=== PATIENT | male | born 1955 | race Hispanic/Latino ===

== ENCOUNTER 2018-08-04 14:30 | Observation (INO) | payer SELFPAY ==
[~2018-08-04] VITALS: Ht 182.9 cm; Wt 77.9 kg
[2018-08-04] MEDS ORDERED: KETOROLAC TROMETHAMINE 15MG/ML ONE (15:31)
[2018-08-04 15:40] LABS: APPEARANCE,URINE Clear (CLEAR); BILIRUBIN,URINE Negative (NEGATIVE); COLOR,URINE Yellow (YELLOW); GLUCOSE, URINE (UA) >=1000 mg/dL (NEGATIVE); KETONES,URINE Negative (NEGATIVE); LEUKOCYTE ESTERASE ,URINE Negative (NEGATIVE); NITRATE,URINE Negative (NEGATIVE); OCCULT BLOOD,URINE Negative (NEGATIVE); PROTEIN,URINE Negative (NEGATIVE); UROBILINOGEN,URINE 0.2 mg/dL (0.2-1.0)
[2018-08-04 15:50] LABS: ALBUMIN 3.6 g/dL (3.5-5.0); BILIRUBIN,TOTAL 0.7 mg/dL (0.2-1.0); CREATININE 0.8 mg/dL (0.5-1.5); POTASSIUM 4.2 mmol/L (3.5-5.1); TOTAL PROTEIN, SERUM 7.7 g/dL (6.0-8.3)
[2018-08-04 16:09] LABS: BASOPHILS % (AUTO) 1.3 % (0.0-5.0); EOSINOPHILS % (AUTO) 2.3 % (0.0-8.0); HEMATOCRIT 37.4 % (42-54); LYMPHOCYTES % (AUTO) 26.2 % (21.0-51.0); MEAN CORPUSCULAR HEMOGLOBIN 32.8 pg (27.0-33.0); MEAN CORPUSCULAR HGB CONC 35.4 g/dL (32.0-36.0); MEAN CORPUSCULAR VOLUME 92.4 fL (79-99); NEUTROPHILS % (AUTO) 60.2 % (40.0-77.0); NUCLEATED RED BLOOD CELLS 0.1 % (0.0-0.19); PLATELET COUNT (AUTO) 67 K/uL (130-400); RED BLOOD CELL COUNT(AUTO) 4.04 MIL/uL (4.50-6.20); RED CELL DISTRIBUTION WIDTH 12.9 % (11.0-15.5); WHITE BLOOD COUNT (AUTO) 4.1 K/uL (4.8-10.8)
[2018-08-04] MEDS ORDERED: IOHEXOL-350 75 ML VIAL IV ONE (16:28)
[2018-08-04] MEDS ORDERED: INSULIN HUMULIN R 100 UNIT/ML 3ML ONE (16:29)
[2018-08-04] MEDS ORDERED: SODIUM CHLORIDE 0.9% 1000ML 1,000 ML IV ONE ×2 (16:30→19:45)
[2018-08-04] MEDS ORDERED: GLUCAGON 1MG KIT 1 MG ML IM PRN (19:00)
[2018-08-04] MEDS ORDERED: DEXTROSE 50%-WATER 50 ML DISP.SYRIN IV PRN (19:00)
[2018-08-04] MEDS: SODIUM CHLORIDE 0.9% 1000ML 1,000 ML IV SCH (19:36)
[2018-08-04] MEDS ORDERED: ACETAMINOPHEN 325 MG TAB PO PRN ×2 (19:45)
[2018-08-04] MEDS ORDERED: ONDANSETRON HCL 4 MG/2 ML VIAL IV PRN (19:45)
[2018-08-04] MEDS ORDERED: NITROGLYCERIN 0.4 MG SL TAB SL PRN (19:45)
[2018-08-04] MEDS ORDERED: SODIUM CHLORIDE 0.9% 1000ML 2,000 ML IV ONE (20:16)
[2018-08-04] MEDS: FAMOTIDINE 20MG TAB 20 MG TAB PO SCH (21:00)
[2018-08-04] MEDS: INSULIN HUMULIN R 100 UNIT/ML 3ML SQ SCH (21:00)
[2018-08-04] MEDS ORDERED: LACTULOSE 20 GM/30 ML UDCUP PO PRN (21:15)
[2018-08-04] MEDS ORDERED: KETOROLAC TROMETHAMINE 15MG/ML IV PRN (21:15)
[2018-08-04] MEDS ORDERED: FAMOTIDINE 20MG TAB 20 MG TAB ONE (23:48)
[2018-08-05] MEDS ORDERED: LACTULOSE 20 GM/30 ML UDCUP ONE (00:08)
[2018-08-05] MEDS ORDERED: INSULIN HUMULIN R 100 UNIT/ML 3ML ONE (00:18)
[2018-08-05 04:00] VITALS: BP 145/80
[2018-08-05] MEDS: SODIUM CHLORIDE 0.9% 1000ML 1,000 ML IV SCH (04:13)
[2018-08-05 05:43] LABS: HEMATOCRIT 33.9 % (42-54); MEAN CORPUSCULAR HEMOGLOBIN 32.4 pg (27.0-33.0); MEAN CORPUSCULAR HGB CONC 35.4 g/dL (32.0-36.0); MEAN CORPUSCULAR VOLUME 91.6 fL (79-99); NUCLEATED RED BLOOD CELLS 0.1 % (0.0-0.19); PLATELET COUNT (AUTO) 62 K/uL (130-400); RED CELL DISTRIBUTION WIDTH 13.1 % (11.0-15.5); WHITE BLOOD COUNT (AUTO) 3.6 K/uL (4.8-10.8)
[2018-08-05 05:56] LABS: ALBUMIN 2.7 g/dL (3.5-5.0); BILIRUBIN,TOTAL 0.9 mg/dL (0.2-1.0); CREATININE 0.7 mg/dL (0.5-1.5); POTASSIUM 3.5 mmol/L (3.5-5.1); TOTAL PROTEIN, SERUM 6.1 g/dL (6.0-8.3)
[2018-08-05 06:12] LABS: BAND NEUTROPHILS % (MANUAL) 3 % (0-2); EOSINOPHILS % (MANUAL) 2 % (1-6); LYMPHOCYTES % (MANUAL) 34 % (22-44); MONOCYTES % (MANUAL) 2 % (2-9); REACTIVE LYMPHOCYTES 1 % (0-0); SEGMENTED NEUTROPHILS % 58 % (40-70)
[2018-08-05 06:14] LABS: MAN.DIFF COMMENT-IMPRESSION MANUAL DIFFERENTIAL; PLATELET MORPHOLOGY COMMENT DECREASED
[2018-08-05] MEDS: INSULIN HUMULIN R 100 UNIT/ML 3ML SQ SCH ×2 (06:16→10:57)
[2018-08-05 07:30] VITALS: BP 112/59
[2018-08-05] MEDS ORDERED: POTASSIUM CHLORIDE 10% ELIXIR 20 MEQ/15 ML UDCUP PO PRN (08:30)
[2018-08-05] MEDS ORDERED: POTASSIUM CHLORIDE 20MEQ/100ML 100 ML IV PRN ×2 (08:30)
[2018-08-05] MEDS ORDERED: LIDOCAINE HCL-MPF 1% 2ML VIAL IVP PRN ×2 (08:30)
[2018-08-05] MEDS ORDERED: ENOXAPARIN SODIUM 30 MG/0.3 ML SQ SCH (09:00)
[2018-08-05] MEDS ORDERED: MAGNESIUM CITRATE 296 ML SOLUTION PO SCH (09:17)
[2018-08-05] MEDS: POTASSIUM CHLORIDE 20 MEQ ERTAB PO PRN ×2 (09:22→11:13)
[2018-08-05] MEDS: FAMOTIDINE 20MG TAB 20 MG TAB PO SCH (09:23)
[2018-08-05 11:00] VITALS: BP 118/57
--- NOTE | 2018-08-05 12:00 | NUR ---
INITIAL. PT BEING DC'D PT BEING DC'D, LUISA, WORKING, UNINSURED, COMMUNITY PKT GIVEN, [facility], AND ALANNA AVILA, NO OTHER CONCENRS VOICED Addendum: 08/06/18 at 0838 by RAGINI CROUCH RN CM Amended: Links added.
--- NOTE | 2018-08-05 13:09 | NUR ---
DM diet education: Newly diagnosed diabetic. Pt admitted with A1C of 11.0. Provided pt with printed materials on Type 2diabetic diet. Pt states he is very familiar with the diet as his father and two brothers are diagnosed with it. Reviewed portion control, carb counting and nutrition label reading tips. Pt with no nutritional questions. Pt encouraged to begin exercise and attend outpatient diabetic classes. Addendum: 08/05/18 at [address] Amended: Links added.
--- NOTE | 2018-08-05 13:45 | NUR ---
DISCHARGE DISCHARGE TEACHING DONE WITH PATIENT AND FAMILY USING TEACHBACK METHOD, VERBALIZED UNDERSTANDING. NO NOTED SOB OR DISTRESS. NO NEW MEDICATIONS. PT AWARE OF NEED TO SET UP CARE WITH PRIMARY CARE PHYSICIAN, LIST OF PROVIDERS IN AREA GIVEN TO PATIENT. DIABETES TEACHING DONE WITH PATIENT, VERBALIZED UNDERSTANDING. IV REMOVED, CATH TIP INTACT. PENDING TO BE TRANSFERRED OUT VIA PRIVATE VEHICLE.
== END 2018-08-05 14:00 | disposition home or self-care (01) ==
LOC: EDH 14:30 → EDHIP 14:31 → 4AH 08-05 03:04
PROVIDERS: ADMIT Internal Medicine; ATTEND Internal Medicine
DX: R10.31 Right lower quadrant pain (principal); D69.6 Thrombocytopenia, unspecified; E11.65 Type 2 diabetes mellitus with hyperglycemia; E44.0 Moderate protein-calorie malnutrition; K59.00 Constipation, unspecified; M54.5 Low back pain; F10.20 Alcohol dependence, uncomplicated; F17.210 Nicotine dependence, cigarettes, uncomplicated; Z87.442 Personal history of urinary calculi; Z80.52 Family history of malignant neoplasm of bladder; Z79.899 Other long term (current) drug therapy
CPT/HCPCS: 36415 ×2; 72100; 74177; 80053 ×2; 80061; 81003; 82010; 82948 ×4; 83036; 83690; 85025 ×2; 87040; 93005; 96361; 96374; 99284; G0378 ×20; J1815 ×2; J1885 ×2; J7030 ×3; Q9967